=== PATIENT | male | born 1935 | race Caucasian/White ===

== ENCOUNTER 2019-10-03 10:28 | Inpatient (IN) ==
[2019-10-03] MEDS ORDERED: Calcium Gluconate 1gm/50mL 1 GM/50 ML BAG IVPB ONE ×2 (10:40→10:50)
[2019-10-03] MEDS ORDERED: Sodium Bicarbonate 50 MEQ/50 ML VIAL IVP ONE (10:41)
[2019-10-03] MEDS ORDERED: 0.9 % Sodium Chloride 500 ML IVC ONE (10:45)
[2019-10-03] MEDS ORDERED: Sodium Bicarbonate 50 MEQ/50 ML VIAL ONE (10:50)
[2019-10-03] MEDS ORDERED: 0.9 % Sodium Chloride 1,000 ML ONE (10:50)
[2019-10-03 11:11] LABS: Basophils % 0.4 %; Eosinophils % 0.4 %; Hematocrit 31.3 % (37.5-50.1); Hemoglobin 9.3 g/dL (12.9-16.9); Immature Granulocytes % 0.8 % (0-4); Lymphocytes # 1.2 K/mcL (0.6-4.6); Mean Corpuscular HGB Conc 29.7 g/dL (31.6-35.5); Mean Corpuscular Hemoglobin 33.6 pg (28.0-33.3); Mean Platelet Volume 10.3 fL (9.4-12.4); Monocytes # 0.4 K/mcL (0.0-1.3); Monocytes % 5.8 %; Neutrophils # 5.7 K/mcL (1.6-8.9); Platelet Count 209 K/mcL (140-400); Red Blood Count 2.77 M/mcL (4.19-5.50); Red Cell Distribution Width 13.4 % (11.5-14.5); Segmented Neutrophils % 76.6 %; White Blood Count 7.4 K/mcL (4.3-11.1)
[2019-10-03 11:16] LABS: INR 1.5; Prothrombin Time 16.6 Seconds (9.4-12.1)
[2019-10-03 11:19] LABS: Activated Partial Thrombo Time 37.3 Seconds (26.0-36.0)
[2019-10-03] MEDS ORDERED: Piperacillin/Tazobactam 3.375 GM in Water for inj. (sterile) 20 ML IVP ONE (11:29)
[2019-10-03 11:33] LABS: Bilirubin,Direct 0.2 mg/dL (0.0-0.2); Bilirubin,Indirect 0.3 mg/dL (0.0-1.0); Bilirubin,Total 0.5 mg/dL (0.3-1.0); Calcium 7.3 mg/dL (8.6-10.3); Globulin 3.1 g/dL (2.4-3.5); Potassium 5.7 mEq/L (3.5-5.1); Total Protein 6.1 g/dL (6.4-8.9); Troponin I 0.27 ng/mL (< 0.04)
[2019-10-03 11:46] LABS: Anisocytosis 1+ (Not Present); Macrocytosis Present (Not Present); Platelet Estimate Normal (Normal)
[2019-10-03] MEDS ORDERED: *HR* Norepinephrine 4 MG/4 ML VIAL IVC ONE (13:26)
[2019-10-03] MEDS ORDERED: 0.9 % Sodium Chloride 250 ML ONE (13:26)
[2019-10-03] MEDS: Norepinephrine 4 MG in 0.9 % Sodium Chloride 250 ML IVC SCH (13:49)
[2019-10-03] MEDS ORDERED: Isovue-370 500 ML BOTTLE IVP ONE (14:27)
[2019-10-03] MEDS ORDERED: Artificial Tears SOLN 15 ML BOTTLE BOTH EYES PRN (15:22)
[2019-10-03] MEDS ORDERED: Naloxone 0.4 MG/ML INJ IVP PRN (15:22)
[2019-10-03] MEDS ORDERED: Acetaminophen 325 MG TABLET PO PRN (15:22)
[2019-10-03] MEDS ORDERED: Piperacillin/Tazobactam 3.375 GM in 0.9 % Sodium Chloride Mini Bag 100 ML IVPB SCH (16:00)
[2019-10-03 16:05] LABS: ABG Base Excess 4 mEq/L (-2 to 3); ABG HCO3 33 mEq/L (21-27); ABG Oxygen Saturation 98 % (95-98); ABG PCO2 83 mmHg (35-45); ABG PH 7.21 pH Units (7.32-7.45); ABG PO2 126 mmHg (85-104); ABG TCO2 36 mEq/L (20-26)
[2019-10-03] MEDS: FentaNYL (PF) 1,000 MCG in 0.9 % Sodium Chloride 80 ML IVC SCH (16:05)
[2019-10-03] MEDS ORDERED: 0.9 % Sodium Chloride 250 ML IVC PRN (16:55)
[2019-10-03] MEDS ORDERED: Albumin 25% 25gram/100mL 25 GM/100 ML IV.SOLN IVPB PRN (16:55)
[2019-10-03] MEDS ORDERED: 0.9 % Sodium Chloride 1,000 ML PRIME SCH (17:00)
[2019-10-03 17:37] LABS: ABG Base Excess 5 mEq/L (-2 to 3); ABG HCO3 30 mEq/L (21-27); ABG Oxygen Saturation 100 % (95-98); ABG PCO2 43 mmHg (35-45); ABG PH 7.45 pH Units (7.32-7.45); ABG PO2 458 mmHg (85-104); ABG TCO2 31 mEq/L (20-26); Blood Gas Modality AF; Blood Gas VT 500 cc
[2019-10-03] MEDS: Latanoprost 2.5 ML BOTTLE BOTH EYES SCH (18:03)
[2019-10-03] MEDS: Pantoprazole 40 MG VIAL IVP SCH (18:03)
[2019-10-03] MEDS: Artificial Tears SOLN 15 ML BOTTLE BOTH EYES SCH ×2 (18:03→20:11)
[2019-10-03 19:19] LABS: Hepatitis B Surface Antigen Nonreactive (Nonreactive)
[2019-10-03] MEDS: Chlorhexidine Rinse 15 ML MOUTHWASH MM SCH (20:11)
[2019-10-03] MEDS: Budesonide/Formoterol 160/4.5 1 PUFF INH IH SCH (21:43)
[2019-10-04] MEDS: Artificial Tears SOLN 15 ML BOTTLE BOTH EYES SCH ×6 (00:02→20:29)
[2019-10-04] MEDS ORDERED: *HR* Heparin 5,000 UNIT/ML VIAL IVP PRN (00:11)
[2019-10-04] MEDS ORDERED: Heparin 25,000 UNIT/250 ML D5W 25,000 UNIT/250 ML IV.SOLN IVC SCH (00:15)
[2019-10-04 01:07] LABS: INR 1.6; Prothrombin Time 18.7 Seconds (9.4-12.1)
[2019-10-04 01:08] LABS: Heparin anti-factor XA UFH < 0.04 IU/mL (0.30-0.70)
[2019-10-04] MEDS: Heparin 25,000 UNIT/250 ML D5W 25,000 UNIT/250 ML IV.SOLN IVC SCH (01:19)
[2019-10-04] MEDS: Piperacillin/Tazobactam 3.375 GM in 0.9 % Sodium Chloride Mini Bag 100 ML IVPB SCH ×2 (01:25→14:04)
[2019-10-04 04:30] LABS: Basophils % 0.4 %; Eosinophils # 0.3 K/mcL (0.0-0.6); Eosinophils % 3.9 %; Hematocrit 28.3 % (37.5-50.1); Hemoglobin 8.7 g/dL (12.9-16.9); Immature Granulocytes % 0.5 % (0-4); Lymphocytes % 12.4 %; Mean Corpuscular HGB Conc 30.7 g/dL (31.6-35.5); Mean Corpuscular Hemoglobin 33.3 pg (28.0-33.3); Mean Corpuscular Volume 108.4 fL (83.0-100.0); Mean Platelet Volume 9.6 fL (9.4-12.4); Monocytes # 0.6 K/mcL (0.0-1.3); Monocytes % 7.5 %; Platelet Count 198 K/mcL (140-400); Red Blood Count 2.61 M/mcL (4.19-5.50); Red Cell Distribution Width 13.7 % (11.5-14.5); Segmented Neutrophils % 75.3 %
[2019-10-04] MEDS: FentaNYL (PF) 1,000 MCG in 0.9 % Sodium Chloride 80 ML IVC SCH (05:27)
[2019-10-04 05:35] LABS: ABG Base Excess 11 mEq/L (-2 to 3); ABG HCO3 37 mEq/L (21-27); ABG Oxygen Saturation 99 % (95-98); ABG PCO2 53 mmHg (35-45); ABG PH 7.45 pH Units (7.32-7.45); ABG PO2 115 mmHg (85-104); ABG TCO2 38 mEq/L (20-26); Blood Gas Modality AF; Blood Gas VT 500 cc
[2019-10-04 05:43] LABS: Albumin 2.9 g/dL (3.5-5.7); Albumin/Globulin Ratio 1.1 (1.1-2.2); Bilirubin,Direct 0.4 mg/dL (0.0-0.2); Bilirubin,Indirect 0.3 mg/dL (0.0-1.0); Bilirubin,Total 0.7 mg/dL (0.3-1.0); Calcium 7.3 mg/dL (8.6-10.3); Globulin 2.6 g/dL (2.4-3.5); Phosphorous 3.6 mg/dL (2.7-4.5); Total Protein 5.5 g/dL (6.4-8.9); Troponin I 2.92 ng/mL (< 0.04)
[2019-10-04] MEDS ORDERED: 0.9 % Sodium Chloride 250 ML IVC PRN (07:13)
[2019-10-04 07:28] LABS: Heparin anti-factor XA UFH 0.13 IU/mL (0.30-0.70); INR 1.8; Prothrombin Time 20.6 Seconds (9.4-12.1)
[2019-10-04] MEDS: Budesonide/Formoterol 160/4.5 1 PUFF INH IH SCH ×2 (07:32→19:48)
[2019-10-04] MEDS ORDERED: *HR* Heparin 5,000 UNIT/ML VIAL SQ SCH (08:00)
[2019-10-04] MEDS: Chlorhexidine Rinse 15 ML MOUTHWASH MM SCH ×2 (08:23→20:23)
[2019-10-04] MEDS: Pantoprazole 40 MG VIAL IVP SCH (08:24)
[2019-10-04] MEDS: *HR* Heparin 5,000 UNIT/ML VIAL IVP PRN (08:24)
[2019-10-04] MEDS: Latanoprost 2.5 ML BOTTLE BOTH EYES SCH (17:55)
[2019-10-04] MEDS: Norepinephrine 4 MG in 0.9 % Sodium Chloride 250 ML IVC SCH (17:56)
[2019-10-05] MEDS: Artificial Tears SOLN 15 ML BOTTLE BOTH EYES SCH ×3 (00:29→17:59)
[2019-10-05] MEDS: Heparin 25,000 UNIT/250 ML D5W 25,000 UNIT/250 ML IV.SOLN IVC SCH ×2 (00:46→15:54)
[2019-10-05] MEDS: *HR* Heparin 5,000 UNIT/ML VIAL IVP PRN (00:47)
[2019-10-05] MEDS: Piperacillin/Tazobactam 3.375 GM in 0.9 % Sodium Chloride Mini Bag 100 ML IVPB SCH (02:26)
[2019-10-05 04:59] LABS: Basophils % 0.5 %; Eosinophils # 0.3 K/mcL (0.0-0.6); Eosinophils % 4.2 %; Hematocrit 27.4 % (37.5-50.1); Hemoglobin 8.2 g/dL (12.9-16.9); Immature Granulocytes % 0.3 % (0-4); Lymphocytes # 1.7 K/mcL (0.6-4.6); Lymphocytes % 21.6 %; Mean Corpuscular HGB Conc 29.9 g/dL (31.6-35.5); Mean Corpuscular Hemoglobin 33.6 pg (28.0-33.3); Mean Corpuscular Volume 112.3 fL (83.0-100.0); Mean Platelet Volume 9.3 fL (9.4-12.4); Monocytes # 0.7 K/mcL (0.0-1.3); Platelet Count 160 K/mcL (140-400); Red Blood Count 2.44 M/mcL (4.19-5.50); Red Cell Distribution Width 13.9 % (11.5-14.5); Segmented Neutrophils % 64.4 %; White Blood Count 7.7 K/mcL (4.3-11.1)
[2019-10-05 05:17] LABS: Magnesium 1.9 mg/dL (1.6-2.6); Potassium 4.2 mEq/L (3.5-5.1)
[2019-10-05 05:43] LABS: Anisocytosis 1+ (Not Present); Macrocytosis Present (Not Present); Microcytosis Present (Not Present)
[2019-10-05 05:44] LABS: Platelet Estimate Normal (Normal)
[2019-10-05] MEDS ORDERED: 0.9 % Sodium Chloride 250 ML IVC PRN ×2 (07:08→09:38)
[2019-10-05] MEDS ORDERED: Isovue-370 500 ML BOTTLE IVP ONE (07:49)
[2019-10-05] MEDS: Pantoprazole 40 MG VIAL IVP SCH (09:10)
[2019-10-05] MEDS: Budesonide/Formoterol 160/4.5 1 PUFF INH IH SCH ×3 (09:14→19:52)
[2019-10-05] MEDS ORDERED: Acetaminophen 325 MG TABLET PO PRN (09:38)
[2019-10-05] MEDS ORDERED: Naloxone 0.4 MG/ML INJ IVP PRN (09:38)
[2019-10-05] MEDS ORDERED: 0.9 % Sodium Chloride 1,000 ML PRIME SCH (09:38)
[2019-10-05] MEDS ORDERED: *HR* Heparin 5,000 UNIT/ML VIAL IVP PRN ×2 (09:38)
[2019-10-05] MEDS ORDERED: Aminoglycoside Consult 1 EACH MC ONE (10:03)
[2019-10-05] MEDS: Aspirin Enteric Coated 81 MG Tablet PO SCH (11:26)
[2019-10-05] MEDS: Albumin 25% 25gram/100mL 25 GM/100 ML IV.SOLN IVPB PRN (11:53)
[2019-10-05] MEDS: cephALEXin 500 MG CAPSULE PO SCH (14:56)
[2019-10-05] MEDS: Latanoprost 2.5 ML BOTTLE BOTH EYES SCH (17:13)
[2019-10-05] MEDS: Doxycycline 100 MG CAPSULE PO SCH (20:02)
[2019-10-05] MEDS ORDERED: Melatonin 3 MG TABLET PO ONE (23:48)
[2019-10-06] MEDS: cephALEXin 500 MG CAPSULE PO SCH ×2 (00:08→12:55)
[2019-10-06] MEDS: Budesonide/Formoterol 160/4.5 1 PUFF INH IH SCH ×2 (07:38→20:01)
[2019-10-06] MEDS: Doxycycline 100 MG CAPSULE PO SCH ×2 (08:18→21:13)
[2019-10-06] MEDS: Aspirin Enteric Coated 81 MG Tablet PO SCH (08:18)
[2019-10-06] MEDS ORDERED: Pantoprazole 40 MG VIAL IVP SCH (09:00)
[2019-10-06] MEDS: Heparin 25,000 UNIT/250 ML D5W 25,000 UNIT/250 ML IV.SOLN IVC SCH (09:03)
[2019-10-06] MEDS ORDERED: Ringers Solution, Lactated 1,000 ML ONE (16:39)
[2019-10-06] MEDS ORDERED: Ringers Solution, Lactated 1,000 ML IVC ONE (16:39)
[2019-10-06] MEDS ORDERED: Furosemide 20 MG/2 ML VIAL IVP ONE (16:48)
[2019-10-06] MEDS ORDERED: Albumin 25% 25gram/100mL 25 GM/100 ML IV.SOLN IVPB ONE (17:02)
[2019-10-06] MEDS: Albumin 25% 25gram/100mL 25 GM/100 ML IV.SOLN IVPB PRN (17:29)
[2019-10-06 17:36] LABS: ABG Base Excess 8 mEq/L (-2 to 3); ABG HCO3 36 mEq/L (21-27); ABG Oxygen Saturation 97 % (95-98); ABG PCO2 80 mmHg (35-45); ABG PH 7.27 pH Units (7.32-7.45); ABG PO2 106 mmHg (85-104); ABG TCO2 39 mEq/L (20-26)
[2019-10-06] MEDS: MethylPREDNISolone 40 MG/ML VIAL IVP SCH (17:48)
[2019-10-06] MEDS: Ipratropium/Albuterol Neb 3 ML IH SCH ×2 (20:01→23:33)
[2019-10-06 20:31] LABS: Basophils % 0.3 %; Eosinophils # 0.2 K/mcL (0.0-0.6); Eosinophils % 2.7 %; Hematocrit 25.8 % (37.5-50.1); Hemoglobin 7.6 g/dL (12.9-16.9); Immature Granulocytes % 0.3 % (0-4); Lymphocytes # 0.8 K/mcL (0.6-4.6); Lymphocytes % 12.7 %; Mean Corpuscular HGB Conc 29.5 g/dL (31.6-35.5); Mean Corpuscular Hemoglobin 33.5 pg (28.0-33.3); Mean Corpuscular Volume 113.7 fL (83.0-100.0); Mean Platelet Volume 9.2 fL (9.4-12.4); Monocytes # 0.2 K/mcL (0.0-1.3); Monocytes % 2.5 %; Neutrophils # 4.8 K/mcL (1.6-8.9); Platelet Count 148 K/mcL (140-400); Red Blood Count 2.27 M/mcL (4.19-5.50); Red Cell Distribution Width 13.9 % (11.5-14.5); Segmented Neutrophils % 81.5 %; White Blood Count 5.9 K/mcL (4.3-11.1)
[2019-10-06 20:51] LABS: Albumin 3.2 g/dL (3.5-5.7); Calcium 7.3 mg/dL (8.6-10.3); Magnesium 1.9 mg/dL (1.6-2.6); Potassium 4.5 mEq/L (3.5-5.1)
[2019-10-06] MEDS: *HR* Heparin 5,000 UNIT/ML VIAL SQ SCH (21:12)
[2019-10-06] MEDS: Latanoprost 2.5 ML BOTTLE BOTH EYES SCH (21:13)
[2019-10-06 21:15] LABS: Hypochromasia Present (Not Present); Platelet Estimate Normal (Normal)
[2019-10-06 21:51] LABS: ABG Base Excess 4 mEq/L (-2 to 3); ABG HCO3 32 mEq/L (21-27); ABG Oxygen Saturation 94 % (95-98); ABG PCO2 66 mmHg (35-45); ABG PO2 82 mmHg (85-104); ABG TCO2 34 mEq/L (20-26)
[2019-10-07] MEDS: cephALEXin 500 MG CAPSULE PO SCH ×2 (00:22→14:21)
[2019-10-07] MEDS: MethylPREDNISolone 40 MG/ML VIAL IVP SCH ×3 (00:22→16:29)
[2019-10-07 01:27] LABS: Basophils % 0.2 %; Eosinophils % 0.2 %; Hematocrit 25.5 % (37.5-50.1); Hemoglobin 7.6 g/dL (12.9-16.9); Immature Granulocytes % 0.7 % (0-4); Lymphocytes # 0.5 K/mcL (0.6-4.6); Lymphocytes % 9.4 %; Mean Corpuscular HGB Conc 29.8 g/dL (31.6-35.5); Mean Corpuscular Hemoglobin 33.2 pg (28.0-33.3); Mean Corpuscular Volume 111.4 fL (83.0-100.0); Mean Platelet Volume 9.2 fL (9.4-12.4); Monocytes # 0.1 K/mcL (0.0-1.3); Monocytes % 1.4 %; Nucleated Red Blood Cells 0.5 /100 WBC (0); Platelet Count 156 K/mcL (140-400); Red Blood Count 2.29 M/mcL (4.19-5.50); Red Cell Distribution Width 13.7 % (11.5-14.5); Segmented Neutrophils % 88.1 %; White Blood Count 5.7 K/mcL (4.3-11.1)
[2019-10-07 01:45] LABS: Calcium 7.3 mg/dL (8.6-10.3); Potassium 4.5 mEq/L (3.5-5.1)
[2019-10-07 02:01] LABS: Basophilic Stippling 1+ (Not Present); Hypochromasia Present (Not Present); Macrocytosis Present (Not Present); Platelet Estimate Normal (Normal); Polychromasia 1+ (Not Present)
[2019-10-07] MEDS: Ipratropium/Albuterol Neb 3 ML IH SCH ×5 (03:33→20:10)
[2019-10-07] MEDS: *HR* Heparin 5,000 UNIT/ML VIAL SQ SCH ×3 (05:59→21:31)
[2019-10-07] MEDS: Budesonide/Formoterol 160/4.5 1 PUFF INH IH SCH ×2 (07:32→20:10)
[2019-10-07] MEDS: Doxycycline 100 MG CAPSULE PO SCH ×2 (09:51→20:45)
[2019-10-07] MEDS: Aspirin Enteric Coated 81 MG Tablet PO SCH (09:52)
[2019-10-07] MEDS: Latanoprost 2.5 ML BOTTLE BOTH EYES SCH (16:29)
[2019-10-07] MEDS: Melatonin 3 MG TABLET PO PRN (20:45)
[2019-10-08] MEDS: Ipratropium/Albuterol Neb 3 ML IH SCH ×6 (00:14→20:02)
[2019-10-08] MEDS: cephALEXin 500 MG CAPSULE PO SCH ×3 (00:34→23:20)
[2019-10-08] MEDS: MethylPREDNISolone 40 MG/ML VIAL IVP SCH ×2 (00:35→08:58)
[2019-10-08 02:41] LABS: Hematocrit 25.6 % (37.5-50.1); Hemoglobin 7.7 g/dL (12.9-16.9); Immature Granulocytes % 0.9 % (0-4); Lymphocytes # 0.3 K/mcL (0.6-4.6); Lymphocytes % 4.9 %; Mean Corpuscular HGB Conc 30.1 g/dL (31.6-35.5); Mean Corpuscular Hemoglobin 33.3 pg (28.0-33.3); Mean Corpuscular Volume 110.8 fL (83.0-100.0); Mean Platelet Volume 9.3 fL (9.4-12.4); Monocytes # 0.3 K/mcL (0.0-1.3); Monocytes % 4.9 %; Neutrophils # 5.8 K/mcL (1.6-8.9); Nucleated Red Blood Cells 0.6 /100 WBC (0); Platelet Count 170 K/mcL (140-400); Red Blood Count 2.31 M/mcL (4.19-5.50); Red Cell Distribution Width 13.9 % (11.5-14.5); Segmented Neutrophils % 89.3 %; White Blood Count 6.5 K/mcL (4.3-11.1)
[2019-10-08 03:02] LABS: Calcium 7.1 mg/dL (8.6-10.3); Potassium 4.4 mEq/L (3.5-5.1)
[2019-10-08 03:05] LABS: Macrocytosis Present (Not Present); Platelet Estimate Normal (Normal)
[2019-10-08] MEDS: *HR* Heparin 5,000 UNIT/ML VIAL SQ SCH ×3 (05:11→21:24)
[2019-10-08] MEDS: Budesonide/Formoterol 160/4.5 1 PUFF INH IH SCH ×2 (07:18→20:06)
[2019-10-08] MEDS ORDERED: 0.9 % Sodium Chloride 250 ML IVC PRN (07:52)
[2019-10-08] MEDS ORDERED: *HR* Heparin 10,000 UNIT/10 ML VIAL IV PRN (07:52)
[2019-10-08] MEDS: Doxycycline 100 MG CAPSULE PO SCH ×2 (08:58→21:24)
[2019-10-08] MEDS: Aspirin Enteric Coated 81 MG Tablet PO SCH (08:58)
[2019-10-08] MEDS: Latanoprost 2.5 ML BOTTLE BOTH EYES SCH (17:13)
[2019-10-08] MEDS: Melatonin 3 MG TABLET PO PRN (23:20)
[2019-10-09] MEDS: Ipratropium/Albuterol Neb 3 ML IH SCH ×6 (00:12→19:47)
[2019-10-09 03:28] LABS: Hematocrit 28.3 % (37.5-50.1); Hemoglobin 8.5 g/dL (12.9-16.9); Mean Corpuscular Hemoglobin 32.7 pg (28.0-33.3); Mean Corpuscular Volume 108.8 fL (83.0-100.0); Mean Platelet Volume 9.2 fL (9.4-12.4); Platelet Count 164 K/mcL (140-400); Red Cell Distribution Width 16.1 % (11.5-14.5); White Blood Count 6.6 K/mcL (4.3-11.1)
[2019-10-09 03:41] LABS: Potassium 4.4 mEq/L (3.5-5.1)
[2019-10-09] MEDS: *HR* Heparin 5,000 UNIT/ML VIAL SQ SCH ×3 (05:37→21:20)
[2019-10-09] MEDS: Budesonide/Formoterol 160/4.5 1 PUFF INH IH SCH ×2 (07:18→19:47)
[2019-10-09] MEDS: Calcium Gluconate 1gm/50mL 1 GM/50 ML BAG IVPB SCH ×2 (09:14→10:24)
[2019-10-09] MEDS: Aspirin Enteric Coated 81 MG Tablet PO SCH (09:14)
[2019-10-09] MEDS: predniSONE 20 MG TABLET PO SCH (09:14)
[2019-10-09] MEDS: Doxycycline 100 MG CAPSULE PO SCH ×2 (09:14→21:20)
[2019-10-09] MEDS: cephALEXin 500 MG CAPSULE PO SCH (13:38)
[2019-10-09] MEDS: Calcium Acetate 667 MG CAPSULE PO SCH (17:48)
[2019-10-09] MEDS: Latanoprost 2.5 ML BOTTLE BOTH EYES SCH (21:20)
[2019-10-10] MEDS: Ipratropium/Albuterol Neb 3 ML IH SCH ×7 (00:19→23:48)
[2019-10-10 03:00] LABS: Hematocrit 28.9 % (37.5-50.1); Hemoglobin 8.7 g/dL (12.9-16.9); Mean Corpuscular HGB Conc 30.1 g/dL (31.6-35.5); Mean Corpuscular Hemoglobin 32.8 pg (28.0-33.3); Mean Corpuscular Volume 109.1 fL (83.0-100.0); Mean Platelet Volume 9.5 fL (9.4-12.4); Platelet Count 163 K/mcL (140-400); Red Blood Count 2.65 M/mcL (4.19-5.50); Red Cell Distribution Width 15.8 % (11.5-14.5)
[2019-10-10 03:19] LABS: Potassium 4.6 mEq/L (3.5-5.1)
[2019-10-10] MEDS: *HR* Heparin 5,000 UNIT/ML VIAL SQ SCH ×3 (05:22→20:06)
[2019-10-10] MEDS ORDERED: 0.9 % Sodium Chloride 1,000 ML ONE (07:11)
[2019-10-10] MEDS: Budesonide/Formoterol 160/4.5 1 PUFF INH IH SCH ×2 (07:24→20:18)
[2019-10-10] MEDS ORDERED: 0.9 % Sodium Chloride 250 ML IVC PRN (08:08)
[2019-10-10] MEDS ORDERED: *HR* Heparin 10,000 UNIT/10 ML VIAL IV PRN (08:08)
[2019-10-10] MEDS: Calcium Acetate 667 MG CAPSULE PO SCH ×3 (09:28→18:12)
[2019-10-10] MEDS: predniSONE 20 MG TABLET PO SCH (09:30)
[2019-10-10] MEDS: Aspirin Enteric Coated 81 MG Tablet PO SCH (09:30)
[2019-10-10] MEDS: Latanoprost 2.5 ML BOTTLE BOTH EYES SCH (18:14)
[2019-10-11] MEDS: Melatonin 3 MG TABLET PO PRN (01:38)
[2019-10-11] MEDS: Ipratropium/Albuterol Neb 3 ML IH SCH ×5 (03:34→19:54)
[2019-10-11 04:00] LABS: Hematocrit 29.6 % (37.5-50.1); Hemoglobin 8.9 g/dL (12.9-16.9); Mean Corpuscular HGB Conc 30.1 g/dL (31.6-35.5); Mean Corpuscular Hemoglobin 33.5 pg (28.0-33.3); Mean Corpuscular Volume 111.3 fL (83.0-100.0); Platelet Count 156 K/mcL (140-400); Red Blood Count 2.66 M/mcL (4.19-5.50); Red Cell Distribution Width 15.7 % (11.5-14.5); White Blood Count 8.5 K/mcL (4.3-11.1)
[2019-10-11 04:22] LABS: Calcium 6.9 mg/dL (8.6-10.3); Potassium 4.4 mEq/L (3.5-5.1)
[2019-10-11] MEDS: *HR* Heparin 5,000 UNIT/ML VIAL SQ SCH ×3 (05:43→23:04)
[2019-10-11] MEDS: Budesonide/Formoterol 160/4.5 1 PUFF INH IH SCH ×2 (07:35→19:54)
[2019-10-11] MEDS: Calcium Acetate 667 MG CAPSULE PO SCH ×3 (09:25→15:53)
[2019-10-11] MEDS: Aspirin Enteric Coated 81 MG Tablet PO SCH (09:25)
[2019-10-11] MEDS: Latanoprost 2.5 ML BOTTLE BOTH EYES SCH (15:53)
[2019-10-12] MEDS: Ipratropium/Albuterol Neb 3 ML IH SCH ×4 (00:01→11:23)
[2019-10-12] MEDS: *HR* Heparin 5,000 UNIT/ML VIAL SQ SCH (06:09)
[2019-10-12 06:49] LABS: Hematocrit 31.9 % (37.5-50.1); Hemoglobin 9.3 g/dL (12.9-16.9); Mean Corpuscular HGB Conc 29.2 g/dL (31.6-35.5); Mean Corpuscular Hemoglobin 32.5 pg (28.0-33.3); Mean Corpuscular Volume 111.5 fL (83.0-100.0); Mean Platelet Volume 8.8 fL (9.4-12.4); Platelet Count 163 K/mcL (140-400); Red Blood Count 2.86 M/mcL (4.19-5.50); Red Cell Distribution Width 15.5 % (11.5-14.5); White Blood Count 7.9 K/mcL (4.3-11.1)
[2019-10-12 07:08] LABS: Calcium 6.9 mg/dL (8.6-10.3); Potassium 5.4 mEq/L (3.5-5.1)
[2019-10-12] MEDS ORDERED: 0.9 % Sodium Chloride 250 ML IVC PRN (07:18)
[2019-10-12] MEDS ORDERED: *HR* Heparin 10,000 UNIT/10 ML VIAL IV PRN (07:18)
[2019-10-12] MEDS: Budesonide/Formoterol 160/4.5 1 PUFF INH IH SCH (07:27)
[2019-10-12] MEDS ORDERED: 0.9 % Sodium Chloride 1,000 ML PRIME SCH (07:30)
[2019-10-12] MEDS ORDERED: 0.9 % Sodium Chloride 2,000 ML ONE (07:44)
[2019-10-12] MEDS: Calcium Acetate 667 MG CAPSULE PO SCH ×2 (08:00→12:03)
[2019-10-12] MEDS: Aspirin Enteric Coated 81 MG Tablet PO SCH (08:00)
[2019-10-12 11:50] VITALS: BP 113/31
[2019-10-12] MEDS ORDERED: Saline Nasal Spray 44 ML BOTTLE NS PRN (13:44)
== END 2019-10-12 15:25 | DRG 871 ==
LOC: EMEROOARM 10:28 → ICNU 14:10 → SUATTDRO 15:22 → ICNU 17:16 → 2ANU 10-05 17:06
PROVIDERS: ADMIT Pediatrics; ATTEND Internal Medicine

== ENCOUNTER 2019-10-30 11:33 | Observation (INO) ==
[2019-10-30 12:44] LABS: Basophils % 0.6 %; Eosinophils # 0.1 K/mcL (0.0-0.6); Eosinophils % 1.5 %; Hematocrit 38.4 % (37.5-50.1); Hemoglobin 11.5 g/dL (12.9-16.9); Immature Granulocytes % 0.3 % (0-4); Lymphocytes # 0.9 K/mcL (0.6-4.6); Lymphocytes % 13.7 %; Mean Corpuscular HGB Conc 29.9 g/dL (31.6-35.5); Mean Platelet Volume 8.9 fL (9.4-12.4); Monocytes # 0.5 K/mcL (0.0-1.3); Monocytes % 7.5 %; Neutrophils # 5.1 K/mcL (1.6-8.9); Platelet Count 164 K/mcL (140-400); Red Blood Count 3.49 M/mcL (4.19-5.50); Red Cell Distribution Width 16.8 % (11.5-14.5); Segmented Neutrophils % 76.4 %; White Blood Count 6.6 K/mcL (4.3-11.1)
[2019-10-30 12:58] LABS: INR 1.2; Prothrombin Time 13.6 Seconds (9.4-12.1)
[2019-10-30 13:01] LABS: Activated Partial Thrombo Time 33.2 Seconds (26.0-36.0)
[2019-10-30 13:11] LABS: Troponin I 0.07 ng/mL (< 0.04)
[2019-10-30 13:17] LABS: Albumin/Globulin Ratio 1.2 (1.1-2.2); Bilirubin,Total 0.5 mg/dL (0.3-1.0); Globulin 2.5 g/dL (2.4-3.5); Potassium 3.7 mEq/L (3.5-5.1); Total Protein 5.5 g/dL (6.4-8.9)
[2019-10-30] MEDS ORDERED: Naloxone 0.4 MG/ML INJ IVP PRN (14:16)
[2019-10-30] MEDS ORDERED: Acetaminophen 325 MG TABLET PO PRN (14:17)
[2019-10-30] MEDS ORDERED: Ipratropium/Albuterol Neb 3 ML IH PRN (14:17)
[2019-10-30] MEDS: Calcium Acetate 667 MG CAPSULE PO SCH (18:44)
[2019-10-30] MEDS: Budesonide/Formoterol 160/4.5 1 PUFF INH IH SCH (20:18)
[2019-10-30] MEDS: Melatonin 3 MG TABLET PO PRN (21:11)
[2019-10-30] MEDS: Latanoprost 2.5 ML BOTTLE BOTH EYES SCH (21:12)
[2019-10-31 00:35] LABS: Basophils % 0.6 %; Eosinophils # 0.2 K/mcL (0.0-0.6); Hematocrit 37.1 % (37.5-50.1); Immature Granulocytes % 0.1 % (0-4); Lymphocytes # 1.3 K/mcL (0.6-4.6); Lymphocytes % 18.9 %; Mean Corpuscular HGB Conc 29.6 g/dL (31.6-35.5); Mean Corpuscular Hemoglobin 33.1 pg (28.0-33.3); Mean Corpuscular Volume 111.7 fL (83.0-100.0); Monocytes # 0.6 K/mcL (0.0-1.3); Neutrophils # 4.9 K/mcL (1.6-8.9); Platelet Count 145 K/mcL (140-400); Red Blood Count 3.32 M/mcL (4.19-5.50); Red Cell Distribution Width 16.3 % (11.5-14.5); Segmented Neutrophils % 69.4 %
[2019-10-31 00:55] LABS: Platelet Estimate Normal (Normal); Polychromasia 1+ (Not Present)
[2019-10-31 00:59] LABS: Calcium 7.5 mg/dL (8.6-10.3); Magnesium 1.8 mg/dL (1.6-2.6); Phosphorous 3.7 mg/dL (2.7-4.5)
[2019-10-31] MEDS ORDERED: *HR* Heparin 10,000 UNIT/10 ML VIAL IV PRN (07:34)
[2019-10-31] MEDS ORDERED: 0.9 % Sodium Chloride 250 ML IVC PRN (07:34)
[2019-10-31] MEDS ORDERED: 0.9 % Sodium Chloride 1,000 ML PRIME SCH (07:45)
[2019-10-31] MEDS: Calcium Acetate 667 MG CAPSULE PO SCH ×3 (09:12→18:52)
[2019-10-31] MEDS: Fenofibrate 54 MG TABLET PO SCH (09:12)
[2019-10-31] MEDS: Aspirin Enteric Coated 81 MG Tablet PO SCH (09:13)
[2019-10-31] MEDS: Budesonide/Formoterol 160/4.5 1 PUFF INH IH SCH ×2 (10:19→20:22)
[2019-10-31] MEDS ORDERED: Albumin 25% 25gram/100mL 25 GM/100 ML IV.SOLN ONE (10:56)
[2019-10-31] MEDS ORDERED: Albumin 25% 25gram/100mL 25 GM/100 ML IV.SOLN IVPB ONE (11:00)
[2019-10-31] MEDS: Latanoprost 2.5 ML BOTTLE BOTH EYES SCH (20:29)
[2019-11-01 02:37] LABS: Basophils % 0.3 %; Eosinophils # 0.2 K/mcL (0.0-0.6); Eosinophils % 2.9 %; Hematocrit 35.2 % (37.5-50.1); Hemoglobin 10.3 g/dL (12.9-16.9); Immature Granulocytes % 0.3 % (0-4); Mean Corpuscular HGB Conc 29.3 g/dL (31.6-35.5); Mean Corpuscular Hemoglobin 32.5 pg (28.0-33.3); Mean Platelet Volume 9.3 fL (9.4-12.4); Monocytes # 0.5 K/mcL (0.0-1.3); Neutrophils # 4.2 K/mcL (1.6-8.9); Platelet Count 154 K/mcL (140-400); Red Blood Count 3.17 M/mcL (4.19-5.50); Red Cell Distribution Width 16.1 % (11.5-14.5); Segmented Neutrophils % 71.5 %; White Blood Count 5.9 K/mcL (4.3-11.1)
[2019-11-01 02:43] LABS: Lymphocytes # 0.9 K/mcL (0.6-4.6)
[2019-11-01 02:56] LABS: Calcium 7.6 mg/dL (8.6-10.3); Potassium 3.9 mEq/L (3.5-5.1)
[2019-11-01 03:10] LABS: Anisocytosis 1+ (Not Present)
[2019-11-01 03:11] LABS: Basophilic Stippling 2+ (Not Present); Platelet Estimate Normal (Normal)
[2019-11-01] MEDS: Calcium Acetate 667 MG CAPSULE PO SCH ×3 (07:29→17:03)
[2019-11-01] MEDS: Budesonide/Formoterol 160/4.5 1 PUFF INH IH SCH ×2 (07:57→20:22)
[2019-11-01] MEDS: Fenofibrate 54 MG TABLET PO SCH (10:02)
[2019-11-01] MEDS: Aspirin Enteric Coated 81 MG Tablet PO SCH (10:03)
[2019-11-01 11:37] LABS: Hepatitis B Surface Antibody 7.99 mIU/mL
[2019-11-01 11:48] LABS: Hepatitis B Surface Antigen Nonreactive (Nonreactive)
[2019-11-01] MEDS: Latanoprost 2.5 ML BOTTLE BOTH EYES SCH (20:01)
[2019-11-02 02:41] LABS: Hemoglobin 9.9 g/dL (12.9-16.9); Immature Platelets 2.2 % (1.1-6.1); Mean Corpuscular Hemoglobin 32.5 pg (28.0-33.3); Mean Corpuscular Volume 108.2 fL (83.0-100.0); Mean Platelet Volume 9.7 fL (9.4-12.4); Red Blood Count 3.05 M/mcL (4.19-5.50); Red Cell Distribution Width 15.9 % (11.5-14.5); White Blood Count 7.2 K/mcL (4.3-11.1)
[2019-11-02 03:00] LABS: Calcium 7.5 mg/dL (8.6-10.3); Potassium 4.9 mEq/L (3.5-5.1)
[2019-11-02] MEDS ORDERED: *HR* Heparin 10,000 UNIT/10 ML VIAL IV PRN (07:22)
[2019-11-02] MEDS ORDERED: 0.9 % Sodium Chloride 250 ML IVC PRN (07:22)
[2019-11-02] MEDS ORDERED: 0.9 % Sodium Chloride 1,000 ML PRIME SCH (07:30)
[2019-11-02] MEDS: Budesonide/Formoterol 160/4.5 1 PUFF INH IH SCH ×2 (07:42→21:34)
[2019-11-02] MEDS: Calcium Acetate 667 MG CAPSULE PO SCH ×4 (07:56→17:08)
[2019-11-02] MEDS: Fenofibrate 54 MG TABLET PO SCH (07:56)
[2019-11-02] MEDS: Aspirin Enteric Coated 81 MG Tablet PO SCH (07:56)
[2019-11-02] MEDS: Latanoprost 2.5 ML BOTTLE BOTH EYES SCH (20:04)
[2019-11-03 03:22] LABS: Calcium 7.7 mg/dL (8.6-10.3); Potassium 4.7 mEq/L (3.5-5.1)
[2019-11-03 03:33] LABS: Magnesium 2.9 mg/dL (1.6-2.6); Phosphorous 2.4 mg/dL (2.7-4.5)
[2019-11-03 04:47] LABS: Hematocrit 35.9 % (37.5-50.1); Hemoglobin 10.9 g/dL (12.9-16.9); Mean Corpuscular HGB Conc 30.4 g/dL (31.6-35.5); Mean Corpuscular Volume 108.8 fL (83.0-100.0); Mean Platelet Volume 10.6 fL (9.4-12.4); Red Cell Distribution Width 15.9 % (11.5-14.5); White Blood Count 9.4 K/mcL (4.3-11.1)
[2019-11-03 05:06] LABS: Platelet Count 86 K/mcL (140-400)
[2019-11-03] MEDS: Budesonide/Formoterol 160/4.5 1 PUFF INH IH SCH ×2 (07:45→20:16)
[2019-11-03] MEDS: Calcium Acetate 667 MG CAPSULE PO SCH ×3 (08:10→17:23)
[2019-11-03] MEDS: Aspirin Enteric Coated 81 MG Tablet PO SCH (08:10)
[2019-11-03] MEDS: Fenofibrate 54 MG TABLET PO SCH (08:10)
[2019-11-03] MEDS: Melatonin 3 MG TABLET PO PRN (20:50)
[2019-11-03] MEDS: Latanoprost 2.5 ML BOTTLE BOTH EYES SCH (20:50)
[2019-11-04 01:52] LABS: Hemoglobin 10.6 g/dL (12.9-16.9); Mean Corpuscular HGB Conc 29.4 g/dL (31.6-35.5); Mean Corpuscular Hemoglobin 32.7 pg (28.0-33.3); Mean Corpuscular Volume 111.1 fL (83.0-100.0); Platelet Count 142 K/mcL (140-400); Red Blood Count 3.24 M/mcL (4.19-5.50); Red Cell Distribution Width 15.6 % (11.5-14.5); White Blood Count 6.8 K/mcL (4.3-11.1)
[2019-11-04 02:04] LABS: Calcium 7.8 mg/dL (8.6-10.3); Potassium 4.1 mEq/L (3.5-5.1)
[2019-11-04] MEDS: Fenofibrate 54 MG TABLET PO SCH (08:55)
[2019-11-04] MEDS: Calcium Acetate 667 MG CAPSULE PO SCH ×3 (08:55→17:09)
[2019-11-04] MEDS: Aspirin Enteric Coated 81 MG Tablet PO SCH (08:55)
[2019-11-04] MEDS: Budesonide/Formoterol 160/4.5 1 PUFF INH IH SCH ×2 (10:27→19:25)
[2019-11-04] MEDS: Melatonin 3 MG TABLET PO PRN (20:24)
[2019-11-04] MEDS: Latanoprost 2.5 ML BOTTLE BOTH EYES SCH (20:25)
[2019-11-05 06:53] LABS: Hematocrit 36.1 % (37.5-50.1); Hemoglobin 10.6 g/dL (12.9-16.9); Mean Corpuscular HGB Conc 29.4 g/dL (31.6-35.5); Mean Corpuscular Hemoglobin 32.9 pg (28.0-33.3); Mean Corpuscular Volume 112.1 fL (83.0-100.0); Mean Platelet Volume 9.5 fL (9.4-12.4); Platelet Count 147 K/mcL (140-400); Red Blood Count 3.22 M/mcL (4.19-5.50); Red Cell Distribution Width 15.6 % (11.5-14.5)
[2019-11-05 07:14] LABS: Calcium 8.1 mg/dL (8.6-10.3); Potassium 4.8 mEq/L (3.5-5.1)
[2019-11-05 07:15] LABS: Magnesium 1.9 mg/dL (1.6-2.6)
[2019-11-05 07:39] LABS: Folate 4.7 ng/mL (3.0-16.0)
[2019-11-05] MEDS: Calcium Acetate 667 MG CAPSULE PO SCH ×2 (07:41→10:59)
[2019-11-05] MEDS: Aspirin Enteric Coated 81 MG Tablet PO SCH (07:41)
[2019-11-05] MEDS: Fenofibrate 54 MG TABLET PO SCH (07:41)
[2019-11-05] MEDS: Budesonide/Formoterol 160/4.5 1 PUFF INH IH SCH (07:49)
[2019-11-05] MEDS ORDERED: 0.9 % Sodium Chloride 250 ML IVC PRN (08:11)
[2019-11-05] MEDS ORDERED: Sennosides/Docusate Sodium TABLET PO SCH (12:45)
[2019-11-05 13:31] VITALS: BP 140/52
== END 2019-11-05 13:55 ==
LOC: 2ANU 11:33 → EMEROOARM 11:33 → SUATTDRO 17:51 → 2ANU 18:41
PROVIDERS: ADMIT Internal Medicine; ATTEND Pharmacist